=== PATIENT | female | born 1975 | race Two or more races ===

== ENCOUNTER 2019-08-29 06:10 | Day surgery (SDC) | payer OTHER | END 2019-08-29 14:30 | disposition home or self-care (01) | LOC: CIR.AMB 06:10 | PROVIDERS: ATTEND Obstetrics & Gynecology | DX: N93.8 Other specified abnormal uterine and vaginal bleeding (principal); Z30.432 Encounter for removal of intrauterine contraceptive device ==

== ENCOUNTER 2021-01-06 08:20 | Outpatient (CLI) | payer OTHER | END 2021-01-06 08:39 | disposition home or self-care (01) | LOC: SONOGRAMA 08:20 → MAMO-SONO 09:15 | DX: E04.2 Nontoxic multinodular goiter (principal); E03.8 Other specified hypothyroidism ==

== ENCOUNTER 2021-01-24 11:28 | Outpatient (CLI) | payer OTHER | END 2021-01-24 15:10 | disposition home or self-care (01) | LOC: SONOGRAMA 11:28 | PROVIDERS: ATTEND Pathology Anatomic Pathology & Clinical Pathology | DX: D34 Benign neoplasm of thyroid gland (principal); E04.8 Other specified nontoxic goiter ==